=== PATIENT | male | born 1995 | race Caucasian/White ===

== ENCOUNTER 2020-04-26 15:52 | Emergency (ER) | payer OTHER ==
[2020-04-26 15:59] VITALS: BP 130/78
--- NOTE | 2020-04-26 16:10 | ER Document Report ---
ED Extremity Problem, Upper - General Chief Complaint: Shoulder Injury Stated Complaint: SHOULDER INJURY Time Seen by Provider: 04/26/20 16:01 Notes: CHIEF COMPLAINT: Left shoulder injury HPI: 24-year-old [id number] male presenting for left shoulder injury. Patient fell 6 feet off a ladder onto his shoulder. [place] imaging done still with pain with any movement of the left arm at the shoulder. Denies head injury neck pain back pain numbness or tingling in the fingertips. ROS: See HPI - all other systems were reviewed and are otherwise negative Constitutional: no fever Eyes: no drainage, no blurred vision ENT: no runny nose, no sore throat Cardiovascular: no chest pain Resp: no SOB, no cough GI: no vomiting, no diarrhea, no abdominal pain : no dysuria Integumentary: no rash Allergy: no hives Musculoskeletal: + extremity pain or swelling Neurological: no numbness/tingling MEDICATIONS: I agree with the patient medications as charted by the RN. ALLERGIES: I agree with the allergies as charted by the RN. PAST MEDICAL HISTORY/PAST SURGICAL HISTORY: Reviewed and agree as charted by RN. SOCIAL HISTORY: Reviewed and agree as charted by RN. FAMILY HISTORY: No significant familial comorbid conditions directly related to patient complaint EXAM: Reviewed vital signs as charted by RN. CONSTITUTIONAL: Alert and oriented and responds appropriately to questions. Well-appearing; well-nourished HEAD: Normocephalic; atraumatic EYES: Conjunctivae clear, sclerae non-icteric ENT: normal nose; no rhinorrhea; moist mucous membranes; phonation normal NECK: Supple without meningismus; non-tender; no cervical lymphadenopathy, no masses CARD: RRR; no murmurs, no clicks, no rubs, no gallops; symmetric distal pulses RESP: Normal chest excursion without splinting or tachypnea; breath sounds clear and equal bilaterally; no wheezes, no rhonchi, no rales, pulse oximetry 98% on room air not hypoxic ABD/GI: Normal bowel sounds; non-distended; soft, non-tender, no rebound, no guarding; no palpable organomegaly or masses. BACK: The back appears normal and is non-tender to palpation, there is no CVA tenderness EXT: Limited abduction of the left arm at the shoulder secondary to complaints of pain. There is an abrasion directly over the acromion joint with tenderness over the acromion joint on palpation or range of motion. No palpable deformity SKIN: Normal color for age and race; warm; dry; good turgor; no acute lesions noted NEURO: Moves all extremities equally; Motor and sensory function intact PSYCH: The patient's mood and manner are appropriate. Grooming and personal hygiene are appropriate. MDM: 24-year-old male left shoulder injury. Will obtain x-ray for fracture, differential would include a tear or separation - Related Data Allergies/Adverse Reactions: No Known Allergies Allergy (Unverified 04/26/20 16:02) Past Medical History - Social History Smoking Status: Unknown if Ever Smoked Family History: Reviewed & Not Pertinent Physical Exam - Vital signs Vitals: Temp Pulse Resp BP Pulse Ox 98.3 F 88 18 130/78 H 97 04/26/20 15:57 04/26/20 15:57 04/26/20 15:57 04/26/20 15:57 04/26/20 15:57 Course - Re-evaluation Re-evalutation: 04/26/20 16:16 I do not visualize a definitive injury or fracture in the shoulder. Sling for comfort, pain management orthopedic referral 04/26/20 16:19 patient uses [facility] so Rx printed - Vital Signs Vital signs: Temp Pulse Resp BP Pulse Ox 98.3 F 88 18 130/78 H 97 04/26/20 16:02 04/26/20 15:57 04/26/20 15:57 04/26/20 15:57 04/26/20 15:57 Procedures - Immobilization Left Shoulder Time completed: 16:19 Pre-Proc Neuro Vasc Exam: Normal Immobilizer type: Sling Performed by: PCT Post-Proc Neuro Vasc Exam: Normal, Unchanged from pre-exam Alignment checked and good: Yes Discharge - Discharge Clinical Impression: Fall from ladder Qualifiers: Encounter type: initial encounter Qualified Code(s): W11.XXXA - Fall on and from ladder, initial encounter Contusion of shoulder Qualifiers: Encounter type: initial encounter Laterality: left Qualified Code(s): S40.012A - Contusion of left shoulder, initial encounter Condition: Stable Disposition: HOME, SELF-CARE Additional Instructions: 1. ice the shoulder twice daily for 10 minutes each time 2. use the sling for comfort during the day only for 2-3 days. Do not sleep in the sling 3. take the arm out of the sling 3-4 times daily and perform gentle range of motion exercises to maintain flexibility in the shoulder 4. medications for pain as directed. Prescriptions: Hydrocodone/Acetaminophen [[place] 5-325 mg Tablet] 1 tab PO Q4 PRN #15 tablet PRN Reason: Diclofenac Sodium [Voltaren 50 Mg Tablet.] 50 mg PO BID #20 tablet. Referrals: FLOR HENNESSY DO [ACTIVE STAFF] - Follow up as needed
--- NOTE | 2020-04-26 16:28 | RADIOLOGY REPORT (SQ) ---
EXAM DESCRIPTION: SHOULDER LEFT 2 OR MORE VIEWS IMAGES COMPLETED DATE/TIME: 04/26/2020 4:10 pm REASON FOR STUDY: fall onto shoulder COMPARISON: None. NUMBER OF VIEWS: Three views. TECHNIQUE: Internal rotation, external rotation, and Y view images acquired of the left shoulder. LIMITATIONS: None. FINDINGS: MINERALIZATION: Normal. BONES: No acute fracture. No worrisome bone lesions. JOINTS: No dislocation. VISUALIZED LUNGS AND RIBS: No pneumothorax. No rib fracture. SOFT TISSUES: No radiopaque foreign body. OTHER: No other significant finding. IMPRESSION: NO RADIOGRAPHIC EVIDENCE OF ACUTE INJURY. TECHNICAL DOCUMENTATION: JOB ID: [id number] [place]-72 2010 [employer] All Rights Reserved Reading location - IP/workstation name: [email or web address]
== END 2020-04-26 16:43 | disposition home or self-care (01) ==
LOC: EDBD → ER 15:52
DX: S40.012A Contusion of left shoulder, initial encounter (principal); S40.212A Abrasion of left shoulder, initial encounter; W11.XXXA Fall on and from ladder, initial encounter
CPT/HCPCS: 99284